=== PATIENT | female | born 1965 | race Two or more races ===

== ENCOUNTER 2023-01-23 05:50 | Day surgery (SDC) | payer OTHER ==
[~2023-01-23] VITALS: Ht 172.7 cm; Wt 128.8 kg
[~2023-01-23 05:50] MED LIST: COZAAR50 MG PO; HYDROCHLOROTHIA25 MG PO; NORVASC5 MG PO; TOPROL XL25 M1 PO
== END 2023-01-23 17:55 | disposition home or self-care (01) ==
LOC: CIR.AMB 05:50
PROVIDERS: ATTEND Obstetrics & Gynecology
DX: N84.0 Polyp of corpus uteri (principal); Z20.822 Contact with and (suspected) exposure to COVID-19; I10 Essential (primary) hypertension; E66.9 Obesity, unspecified

== ENCOUNTER → 2024-07-30 | Outpatient (CLI) | payer OTHER | END | disposition home or self-care (01) | LOC: SONOGRAMA 08:45 | PROVIDERS: ATTEND Pathology Anatomic Pathology & Clinical Pathology | DX: E04.2 Nontoxic multinodular goiter (principal); D34 Benign neoplasm of thyroid gland ==